=== PATIENT | male | born 1955 | race African-American/Black ===

== ENCOUNTER → 2016-06-15 | Outpatient (REF) | LOC: WSOH 12:06 | DX: Z11.1 Encounter for screening for respiratory tuberculosis (principal) ==

== ENCOUNTER → 2016-07-03 | Outpatient (REF) | LOC: WSOH 07-01 10:14 | DX: Z00.00 Encounter for general adult medical examination without abnormal findings (principal) ==

== ENCOUNTER → 2016-11-02 | Outpatient (CLI) | payer OTHER | LOC: COL.RAD 09:08 | DX: N43.3 Hydrocele, unspecified (principal); N50.89 Other specified disorders of the male genital organs ==